=== PATIENT | male | born 1985 | race Caucasian/White ===

== ENCOUNTER 2019-09-20 20:12 | Emergency (ER) | payer OTHER ==
[~2019-09-20] VITALS: Ht 180.3 cm; Wt 97.5 kg
[2019-09-20] MEDS ORDERED: VENTOLIN HFA 1818 GM INH (20:30)
[2019-09-20] MEDS ORDERED: BENADRYL25 MG PO (20:54)
[2019-09-20] MEDS ORDERED: EPIPEN0.3 MG/0.1 IM (20:54)
[2019-09-20] MEDS ORDERED: FAMOTIDINE 20 M20 MG PO (20:54)
[2019-09-20] MEDS ORDERED: PREDNISONE 20 M20 MG PO (20:54)
[2019-09-20 21:49] VITALS: BP 132/75
== END 2019-09-20 21:49 | disposition home or self-care (01) ==
LOC: M.ERS 20:12
DX: R42 Dizziness and giddiness (principal); R06.02 Shortness of breath; T78.1XXA Other adverse food reactions, not elsewhere classified, initial encounter; J45.909 Unspecified asthma, uncomplicated; Z91.013 Allergy to seafood